=== PATIENT | female | born 1965 | race Caucasian/White ===

== ENCOUNTER → 2021-01-05 | Outpatient (CLI) | payer BC ==
--- NOTE | 2021-01-05 09:33 | KCIC ---
MR LUMBAR SPINE WO [id number] Date: 01/05/2021 8:00 AM Indication: LUMBAGO WITH RADICULOPATHY. Chronic lbp, especially when standing. BLE pain and numbness . Comparison: None. Technique: Multi-planar multi-weighted magnetic resonance imaging of the lumbar spine was performed w ithout intravenous contrast using the standard lumbar spine protocol. FINDINGS: Trace anterolisthesis at L4-5 due to facet arthropathy. No acute fracture. Mild multilevel degenerati ve disc desiccation and disc height loss. Fatty degenerative endplate changes at L1-2. T12 and L1 kaye tebral body hemangiomas. The conus terminates at a normal level. No abnormal signal is seen within the visualized distal spina l cord. No clumping of intrathecal nerve roots. No soft tissue abnormality in the visualized abdomen or pelvis. T11-T12: Disc bulge. Mild spinal canal stenosis. No neural foraminal narrowing. T12-L1: No disc bulge. No significant spinal stenosis or neural foraminal narrowing. L1-L2: Disc bulge with central protrusion. Mild facet arthropathy. Moderate spinal canal stenosis. No neural foraminal narrowing. L2-L3: Disc bulge. Mild to moderate facet arthropathy. No significant spinal stenosis or neural ludivina inal narrowing. L3-L4: Disc bulge. Mild facet arthropathy. No significant spinal stenosis or neural foraminal narrowi ng. L4-L5: Disc bulge. Severe facet arthropathy. Ligamentum flavum thickening. Mild spinal stenosis. No n eural foraminal narrowing. L5-S1: Disc bulge. Moderate facet arthropathy. No significant spinal stenosis. Mild left neural ludivina inal narrowing. IMPRESSION: Moderate lumbar spondylosis, detailed level by level above. Electronically signed by: Andrew Gar MD (01/05/2021 9:31 AM) [id number]
== END ==
LOC: KCIC MRI 07:56
PROVIDERS: ATTEND Nurse Practitioner Acute Care
DX: M47.27 Other spondylosis with radiculopathy, lumbosacral region (principal)
CPT/HCPCS: 72148